=== PATIENT | female | born 1970 | race Two or more races ===

== ENCOUNTER 2020-07-19 11:05 | Inpatient (IN) | payer MEDICAID, OTHER ==
[~2020-07-19] VITALS: Ht 167.6 cm; Wt 128.1 kg
[2020-07-19] MEDS ORDERED: SODIUM CHLORIDE 0.9% 500 ML IVB ONE (11:30)
[2020-07-19] MEDS ORDERED: LORazepam 2MG/ML-1ML VIAL IV ONE ×3 (11:30→14:15)
[2020-07-19 12:29] LABS: Basophils # (auto) 0 10 ^3/uL (0-0.2); Basophils % (auto) 0.5 % (0.0-2.0); Eosinophils # (auto) 0.1 10 ^3/uL (0-0.8); Eosinophils % (auto) 1.7 % (0.0-7.0); Hematocrit 37.7 % (36.0-46.0); Hemoglobin 12.8 g/dL (12.2-16.2); Lymphocytes # (auto) 2.1 10 ^3/uL (0.4-5.4); Lymphocytes % (auto) 30.6 % (10.0-50.0); Mean Corpuscular Hemoglobin 31.5 pg (28.0-32.0); Mean Corpuscular Volume 92.8 fL (80.0-100.0); Monocytes # (auto) 0.7 10 ^3/uL (0-1.3); Monocytes % (auto) 9.9 % (0.0-12.0); Neutrophils # (auto) 3.9 10 ^3/uL (1.6-8.6); Neutrophils % (auto) 57.3 % (37.0-80.0); Platelet Count (auto) 243 10^3/uL (140-450); Red Blood Cells 4.06 10^6/uL (4.0-5.20); Red Cell Distribution Width 13.7 % (11.8-14.3); White Blood Cell 6.8 10^3/uL (4.4-10.8)
[2020-07-19 12:41] LABS: Albumin 3.5 g/dL (3.4-5.0); Anion Gap 6 (5-15); Blood Urea Nitrogen 21 mg/dL (7-18); Calcium 8.6 mg/dL (8.5-10.1); Carbon Dioxide 23 mmol/L (21-32); Chloride 114 mmol/L (98-107); Glucose 101 mg/dL (74-106); Magnesium 2.3 mg/dL (1.6-2.6); Potassium 4.1 mmol/L (3.5-5.1); Sodium 143 mmol/L (136-145)
[2020-07-19 12:48] LABS: Alanine Aminotransferase 42 U/L (13-56); Alkaline Phosphatase 55 U/L (45-117); Aspartate Aminotransferase 24 U/L (15-37); BUN/Creatinine Ratio 24.4; Bilirubin, Total 0.3 mg/dL (0.2-1.0); GFR African American 91 mL/min; GFR Non-African American 75 mL/min; Total Protein 6.5 g/dL (6.4-8.2)
[2020-07-19] MEDS ORDERED: HYDROcodone-ACET 10/325MG TAB PO ONE (13:15)
[2020-07-19] MEDS ORDERED: LORazepam 2MG/ML-1ML VIAL ONE (14:00)
[2020-07-19] MEDS ORDERED: LORazepam 2MG/ML-1ML VIAL IV PRN ×2 (14:15→18:30)
[2020-07-19] MEDS ORDERED: MORPHINE SULF INJ 2 MG/ML SYRINGE 1ML IV PRN ×2 (14:15→20:15)
[2020-07-19] MEDS ORDERED: ONDANSETRON HCL 4 MG/2 ML VIAL IV PRN (14:15)
[2020-07-19] MEDS ORDERED: NITROGLYCERIN 0.4 MG SL TAB SL PRN (14:15)
[2020-07-19] MEDS ORDERED: ACETAMINOPHEN 500 MG TAB PO PRN (14:15)
[2020-07-19 16:01] LABS: Urine Amorphous Crystal FEW /hpf (None Seen); Urine Bacteria NONE SEEN /hpf (None Seen); Urine Blood Negative /uL (Negative); Urine Hyaline Cast FEW /lpf (0 - 2); Urine Specific Gravity 1.015 (1.001-1.035); Urine WBC 1 /hpf (0 - 5)
[2020-07-19] MEDS ORDERED: GABA-339 PO (16:09)
[2020-07-19] MEDS ORDERED: TRAM50TA2 PO (16:09)
[2020-07-19] MEDS ORDERED: TOPI100T29 PO (16:09)
[2020-07-19] MEDS ORDERED: FOLI1TAB6 PO (16:09)
[2020-07-19] MEDS ORDERED: CELE100C82 PO (16:09)
[2020-07-19] MEDS ORDERED: ONDA-144 PO (16:09)
[2020-07-19] MEDS ORDERED: LISI-716 PO (16:09)
[2020-07-19] MEDS ORDERED: BET25T GT (16:09)
[2020-07-19] MEDS ORDERED: ATEN25TA PO (16:09)
[2020-07-19 16:10] LABS: Alcohol, Urine < 3.0 mg/dL (0-10); Amphetamine Screen, Urine NEGATIVE (NEGATIVE); Barbiturate Scree,Urine NEGATIVE (NEGATIVE); Benzodiazephine Screen, Urine NEGATIVE (NEGATIVE); Cannabinoid Screen, Urine POSITIVE (NEGATIVE); Cocaine Screen, Urine NEGATIVE (NEGATIVE); Opiate Scree,Urine POSITIVE (NEGATIVE); Phencyclidine Screen, Urine NEGATIVE (NEGATIVE)
[2020-07-19] MEDS ORDERED: MORPHINE SULF INJ 2 MG/ML SYRINGE 1ML IV ONE (18:00)
[2020-07-19] MEDS ORDERED: HYDROcodone-ACET 7.5/325MG TAB PO PRN (18:30)
[2020-07-19 20:32] VITALS: BP 100/66
[2020-07-19] MEDS ORDERED: HYDR-4072 PO (21:21)
[2020-07-19] MEDS ORDERED: METH2.5T IM (21:21)
[2020-07-19] MEDS ORDERED: LORA0.5T20 PO (21:21)
[2020-07-19 22:00] VITALS: BP 108/56
[2020-07-19] MEDS: OXYCODONE W/ ACETAMINOPHEN 5/325MG TABLET PO PRN (23:57)
[2020-07-20] MEDS: OXYCODONE W/ ACETAMINOPHEN 5/325MG TABLET PO PRN ×3 (04:34→14:04)
[2020-07-20 05:00] VITALS: BP 92/74
[2020-07-20 08:30] VITALS: BP 85/54
[2020-07-20] MEDS ORDERED: FAMOTIDINE 20 MG TAB PO SCH (10:00)
[2020-07-20] MEDS ORDERED: IOHEXOL 350 MG/ML 100ML IJ ONE (11:17)
[2020-07-20 12:30] VITALS: BP 93/56
[2020-07-20] MEDS ORDERED: GADOTERATE MEG 10 MMOL/20ml INJ (0.5MMOL/ml) IV ONE (14:32)
[2020-07-20] MEDS ORDERED: SODIUM CHLORIDE 0.9% 1,000 ML IV ONE (16:30)
[2020-07-20] MEDS ORDERED: HYDROCORTISONE SOD SUCC 100 MG/2ML INJ VIAL IV ONE (16:30)
[2020-07-20] MEDS ORDERED: methylPREDNISolone SOD SUCC 125 MG/2 ML VL IV ONE (16:30)
[2020-07-20 17:00] VITALS: BP 94/48
[2020-07-20 19:03] VITALS: BP 98/61
== END 2020-07-20 19:23 | disposition home or self-care (01) | DRG 53 ==
LOC: EDBD 11:05 → ER 11:05 → TELE 14:02 → TELE-EAST 20:15
PROVIDERS: ADMIT Hospitalist; ATTEND Hospitalist
DX: G40.209 Localization-related (focal) (partial) symptomatic epilepsy and epileptic syndromes with complex partial seizures, not intractable, without status epilepticus (principal); I67.1 Cerebral aneurysm, nonruptured; I95.9 Hypotension, unspecified; E66.01 Morbid (severe) obesity due to excess calories; G35 Multiple sclerosis; K74.60 Unspecified cirrhosis of liver; Z68.42 Body mass index [BMI] 45.0-49.9, adult; F41.9 Anxiety disorder, unspecified; M54.9 Dorsalgia, unspecified; G89.29 Other chronic pain; I10 Essential (primary) hypertension; M06.9 Rheumatoid arthritis, unspecified; Z90.49 Acquired absence of other specified parts of digestive tract; Z88.1 Allergy status to other antibiotic agents
CPT/HCPCS: 36415; 70450; 70496; 70545; 70551; 70553; 71045; 72142; 80053; 80307; 80320; 81001; 83735; 84484; 85025; 87426; 93005; 95819; 96361; 96374; 96376; 97163; G0378

== ENCOUNTER 2020-08-20 14:11 | Emergency (ER) | payer MEDICAID ==
[~2020-08-20] VITALS: Ht 167.6 cm; Wt 113.4 kg
[~2020-08-20 14:11] MED LIST: CELE100C82 PO; FOLI1TAB6 PO; GABA-339 PO; HYDR-4072 PO; LORA0.5T20 PO; METH2.5T IM; ONDA-144 PO; TOPI100T29 PO; TRAM50TA2 PO
[2020-08-20 15:56] VITALS: BP 115/50
== END 2020-08-20 16:28 | disposition home or self-care (01) ==
LOC: ER 14:11
DX: R33.9 Retention of urine, unspecified (principal); F12.10 Cannabis abuse, uncomplicated
CPT/HCPCS: 51702; 81002